=== PATIENT | male | born 1955 | race Caucasian/White ===

== ENCOUNTER 2022-10-22 14:35 | Observation (INO) | payer OTHER, MEDICARE, SELFPAY ==
[2022-10-22 14:41] VITALS: BP 140/79; PULSE 92; RESP 20; TEMP 36.2; O2SAT 98; BMI 23.7
--- NOTE | 2022-10-22 15:24 | ED_ITS ---
HPI - Fall General Time Seen by Provider: 15:24 Date Seen: 10/22/22 Chief Complaint: Fall/Minor Trauma Stated Complaint: Fall Rib Pain Time Seen by Provider: 10/22/22 15:24 Source: patient, RN notes reviewed and old records reviewed Mode of arrival: ambulatory Limitations: no limitations History of Present Illness HPI Narrative: Jignesh is a very pleasant 67-year-old gentleman with a history of diabetes who comes to the emergency room after having fallen and hurting his chest. Patient noted to be in [place] working and was carrying a 15 lb paving stone when he tripped over an electrical cord fell forward landing on the paving stone which was on the ground. He did not lose consciousness, hit his head or hurt his neck. He did however hit his right anterior chest and anterior chest. He has been having significant pain since that time in feels as if there is maybe some movement and crackling in the right anterior chest. He has not had a cough or had any hemoptysis. He has not been short of breath, nauseated or had any vomiting. Related Data Allergies Allergy/AdvReac Type Severity Reaction Status Date / Time No Known Drug Allergies Allergy Verified 10/22/22 14:41 Review of Systems Status of ROS: Reports: 6 or more systems reviewed and unremarkable except as noted in History and below Const: Denies: fever or chills Eyes: Reports: decreased night vision; Denies: change in vision ENMT: Denies: throat pain, neck pain or difficulty swallowing Cardio: Denies: shortness of breath with exertion Resp: Denies: shortness of breath, cough or wheezing GI: Denies: abdominal pain, nausea, vomiting or difficulty swallowing Musculo: Denies: back pain, neck pain, extremity pain or extremity swelling Integ/Breast: Reports: redness and skin pain; Denies: rash or itching Neuro: Denies: headache, numbness in extremities, weakness in extremities or lack of coordination Allergy/Immuno: Denies: wheezing PFSH PFSH Medical History Diabetes mellitus type 1 Diabetic peripheral neuropathy Mixed hyperlipidemia Tobacco abuse disorder Family History Brother Cancer Social History Smoking Status: Current every day smoker What tobacco products do you use: cigars Do you use any of these nicotine containing products: None Second hand tobacco smoke exposure: No How often do you have a drink containing alcohol: 4 or more times a week How many standard drinks containing alcohol do you have on a typical day: 1 or 2 How often do you have six or more drinks on one occasion: Monthly AUDIT-C Alcohol total score: 6 Non-prescribed substance use: denies use service: No Exam Narrative: Exam Narrative: Jignesh is a very pleasant 67-year-old male. He is alert and oriented with a GCS of 15. Nontoxic in appearance. Airway is open breathing is easy circulation without evidence of bleeding disability-pupils equal round and reactive, GCS of 15. Head is atraumatic normocephalic with no pain palpation over the midline cervical spine. EOM is full Ankush symmetrical speech is normal. Heart is with regular rate and rhythm and lungs are clear in all lung garcia Patient has tenderness noted over the anterior lateral ribs 456. There is erythema over the sub areola our area. I do not palpate any crepitus there is no subcutaneous emphysema Abdomen soft nontender with no pain with palpation over liver or spleen. No CVA tenderness with percussion Lower extremities moving without difficulty. No pain with palpation over thoracic or lumbar spine. Const: Vital Signs, click to edit/add: Vital Signs - 24 hr 10/22/22 14:41 10/22/22 18:08 10/22/22 18:11 Temperature 97.1 F L Pulse Rate 63 66 Pulse Rate [Pulse Oximeter] 92 Respiratory Rate 20 Blood Pressure 149/74 H Blood Pressure [Le ft Upper Arm] 140/79 H Pulse Oximetry 98 97 97 Oxygen Delivery Me thod Room Air 10/22/22 18:15 Temperature Pulse Rate 65 Pulse Rate [Pulse Oximeter] Respiratory Rate Blood Pressure Blood Pressure [Le ft Upper Arm] Pulse Oximetry 97 Oxygen Delivery Me thod Course Course Hospital Course: Patient is presenting with anterior chest trauma but stable. I a.m. very suspicious of rib fractures in the upper anterior chest wall. Will have labs drawn to include a CBC and basic panel as well as troponin. Will have an EKG and a CT of the chest with contrast. Patient is declining pain medications at this time. Will need to rule patient out for pneumothorax, hemothorax, great vessel injury, cardiac contusion, lung contusion. Reevaluation(s) Reevaluation #1: Chest CT noted to show anterior rib fractures. I will be speaking to [facility] regarding their protocols in the event of rib fractures with stable vital signs. Consultations Consultation #1: Able to speak with [facility] who does suggest admission. Vital Signs Vital signs: Initial Vital Signs Temperature 97.1 F L 10/22/22 14:41 Temperature Source Temporal Artery Scan 10/22/22 14:41 Pulse Rate 92 10/22/22 14:41 Pulse Rhythm 10/22/22 14:41 Respiratory Rate 20 10/22/22 14:41 Blood Pressure 140/79 H 10/22/22 14:41 Blood Pressure Mean 99 10/22/22 14:41 Blood Pressure Position Sitting 10/22/22 14:41 Pulse Oximetry 98 10/22/22 14:41 Oxygen Delivery Method 10/22/22 14:41 Vital Signs Temperature 97.1 F L 10/22/22 14:41 Pulse Rate 92 10/22/22 14:41 Respiratory Rate 20 10/22/22 14:41 Blood Pressure 140/79 H 10/22/22 14:41 Pulse Oximetry 98 10/22/22 14:41 Oxygen Delivery Method 10/22/22 14:41 Temperature 97.1 F L 10/22/22 14:41 Pulse Rate 65 10/22/22 18:15 Respiratory Rate 20 10/22/22 14:41 Blood Pressure 149/74 H 10/22/22 18:11 Pulse Oximetry 97 10/22/22 18:15 Oxygen Delivery Method 10/22/22 14:41 MDM - Fall MDM Narrative Medical decision making narrative: 1. Rib fractures-CT confirms read fractures of 3, 4, 5 with no evidence of flail chest. No evidence of underlying hemothorax or pneumothorax. O2 sats continued to be in the 90s with no complaints of shortness of breath. 2. Sternal fracture-oblique mildly displaced sternal fracture noted. A patient has EKG which is reassuring without any ST elevation and a troponin is negative. Great vessels of CT do not show any evidence of compromise. 3. Diabetes-patient requesting NovoLog 8 units prior to eating. This is been ordered. 4. . Disposition-I was able to speak to [facility] regarding their care of a gentleman with these injuries but essentially stable not not requiring respiratory support and they do recommend overnight hospitalization for observation. I have informed surgeon on-call as a [facility] for trauma center that we do have this patient but are not requiring any evaluation at this time. Dr. Kellogg, hospitalist, has accepted this patient for admission. Note patient now receptive to admission as well as some pain medications. Patient given morphine 4 mg and Zofran 4 mg. Medical Records Attestation: I reviewed the patient's medical records. Lab Data Attestation: I reviewed the patient's lab results. Lab results narrative: Review of labs shows no evidence of anemia, leukocytosis or thrombocytopenia. Labs: Lab Results 10/22/22 10/22/22 10/22/22 Range/Units 15:45 15:45 17:48 WBC 8.13 (4.50-11.00) K/uL RBC 4.17 L (4.30-5.90) m/uL Hgb 14.7 (13.5-17.5) gm/dL Hct 41.4 (37.0-53.0) % MCV 99 (80-100) fL MCH 35 H (26-34) pg MCHC 36 (32-36) gm/dL RDW Coeff of Tarsha 11.6 (11.5-15.5) % Plt Count 270 (140-440) K/uL Neut % (Auto) 73.2 H (42.0-72.0) % Lymph % (Auto) 13.9 L (20-44) % [place] % (Auto) 11.8 H (0.0-11.0) % Eos % (Auto) 0.5 (0.0-7.0) % Baso % (Auto) 0.5 (0.0-3.0) % Neut # (Auto) 6.00 (1.7-7.0) K/uL Lymph # (Auto) 1.10 (0.90-2.90) K/uL [place] # (Auto) 1.00 H (0.00-0.90) K/UL Eos # (Auto) 0.04 (0.00-0.50) K/uL Baso # (Auto) 0.04 (0.00-0.30) K/uL Sodium 136 (135-149) mmol/L Potassium 4.6 (3.6-5.1) mmol/L Chloride 106 (96-114) mmol/L Carbon Dioxide 23 (20-32) mmol/L BUN 21 (7-30) mg/dL Creatinine 0.7 (0.5-1.5) mg/dL Estimated Creat Clear 73.00 Estimated GFR 100 ml/min Glucose 219 H (60-115) mg/dL Calcium 9.1 (8.4-10.6) mg/dL Troponin I < 0.01 L (0.01-0.04) ng/mL SARS-CoV-2 (PCR) Negative SARS-CoV-2 (Negative) Imaging Data CT scan - chest: Attestation: I have reviewed the pertinent imaging results. My impression: I suspect a sternal fracture and do note at least 1 rib fracture. Radiologist's impression: HEART and MEDIASTINUM: The heart size is normal. There is no mediastinal or hilar adenopathy or mass. There is no pericardial effusion. LUNGS: The lungs show no focal consolidation or mass. The airways appear normal. Trace bibasilar atelectasis PLEURAL SPACES: There is no pleural effusion, pneumothorax or pleural based mass. VISUALIZED UPPER ABDOMEN: Hepatic steatosis. Granulomatous calcifications of the liver and spleen limited visualized upper abdominal structures appear normal. OSSEOUS STRUCTURES: Fractures of the anterolateral aspect of the right 3rd, 4th and 5th ribs. Nondisplaced oblique mid sternal fracture. No mediastinal hematoma. No lung injury. No pleural effusion or pneumothorax. No spinal fracture TUBES and LINES: None. IMPRESSION: 1. Fractures of the inferolateral aspect of the right 3rd, 4th and 5th ribs. Nondisplaced oblique mid sternal fracture. No mediastinal hematoma. No mediastinal vascular injury. No lung injury. No pleural injury. 2. No fracture of the spine. 3. Incidental nonacute appearing findings as discussed above Please note that all CT scans at this facility use dose modulation, iterative reconstruction, and/or weight-based dosing when appropriate to reduce radiation dose to as low as reasonably achievable. ECG Data Attestation: I personally reviewed and interpreted this ECG as follows: ECG interpretation date: 10/22/22 Interpretation: EKG by my read shows sinus rhythm at a rate of 63. No evidence of acute ST or T-wave changes. Discharge Plan Discharge Clinical Impression: Multiple rib fractures, Sternal fracture Patient Disposition: Admitted As Inpatient Condition: Improved
[2022-10-22 16:08] LABS: Basophils Absolute Auto 0.04 K/uL (0.00-0.30); Basophils Percent Auto 0.5 % (0.0-3.0); Eosinophils Absolute Auto 0.04 K/uL (0.00-0.50); Eosinophils Percent Auto 0.5 % (0.0-7.0); Hematocrit 41.4 % (37.0-53.0); Hemoglobin* 14.7 gm/dL (13.5-17.5); Immature Granulocytes Abs Auto 0.01 K/uL (0.00-0.30); Immature Granulocytes Pct Auto 0.1 %; Lymphocytes Percent Auto 13.9 % (20-44); Mean Corpuscular HGB Conc 36 gm/dL (32-36); Mean Corpuscular Hemoglobin 35 pg (26-34); Mean Corpuscular Volume 99 fL (80-100); Monocytes Percent Auto 11.8 % (0.0-11.0); Neutrophils Percent Auto 73.2 % (42.0-72.0); Platelet Count* 270 K/uL (140-440); RDW Coefficient of Variation % 11.6 % (11.5-15.5); Red Blood Count 4.17 m/uL (4.30-5.90); White Blood Count* 8.13 K/uL (4.50-11.00)
[2022-10-22 16:10] LABS: Slide Review Reflex No
--- NOTE | 2022-10-22 16:14 | CRLHL7_ITS ---
For Patients: As a result of the Century Cures Act, medical imaging exams and procedure reports are released immediately into your electronic medical record. You may view this report before your referring provider. If you have questions, please contact your health care provider. INDICATION: Trauma COMPARISON: None TECHNIQUE: : CT examination of the chest was performed with the uneventful intravenous administration of 75 cc of Isovue 370 while thin axial sections were obtained from above the apices of the lungs to the lung bases. Please note that all CT scans at this facility use dose modulation, iterative reconstruction, and/or weight-based dosing when appropriate to reduce radiation dose to as low as reasonably achievable. FINDINGS: : HEART and MEDIASTINUM: The heart size is normal. There is no mediastinal or hilar adenopathy or mass. There is no pericardial effusion. LUNGS: The lungs show no focal consolidation or mass. The airways appear normal. Trace bibasilar atelectasis PLEURAL SPACES: There is no pleural effusion, pneumothorax or pleural based mass. VISUALIZED UPPER ABDOMEN: Hepatic steatosis. Granulomatous calcifications of the liver and spleen limited visualized upper abdominal structures appear normal. OSSEOUS STRUCTURES: Fractures of the anterolateral aspect of the right 3rd, 4th and 5th ribs. Nondisplaced oblique mid sternal fracture. No mediastinal hematoma. No lung injury. No pleural effusion or pneumothorax. No spinal fracture TUBES and LINES: None. IMPRESSION: 1. Fractures of the inferolateral aspect of the right 3rd, 4th and 5th ribs. Nondisplaced oblique mid sternal fracture. No mediastinal hematoma. No mediastinal vascular injury. No lung injury. No pleural injury. 2. No fracture of the spine. 3. Incidental nonacute appearing findings as discussed above Please note that all CT scans at this facility use dose modulation, iterative reconstruction, and/or weight-based dosing when appropriate to reduce radiation dose to as low as reasonably achievable. Dictated by Jignesh Gilbert MD @ 10/22/2022 5:10:04 PM (Electronically Signed)
[2022-10-22 16:15] LABS: Chloride* 106 mmol/L (96-114); Sodium* 136 mmol/L (135-149)
[2022-10-22 16:16] LABS: Potassium* 4.6 mmol/L (3.6-5.1)
[2022-10-22 16:18] LABS: Creatinine* 0.7 mg/dL (0.5-1.5); Estimated Glomerular Filt Rate 100 ml/min
[2022-10-22 16:19] LABS: Blood Urea Nitrogen* 21 mg/dL (7-30); Calcium* 9.1 mg/dL (8.4-10.6); Carbon Dioxide* 23 mmol/L (20-32); Glucose* 219 mg/dL (60-115)
[2022-10-22 18:08] VITALS: PULSE 63; O2SAT 97
[2022-10-22 18:11] VITALS: BP 149/74; PULSE 66; O2SAT 97
[2022-10-22 18:15] VITALS: PULSE 65; O2SAT 97
[2022-10-22] MEDS: ONDANSETRON 2 MG/ML inj 4 MG IVP (18:22)
[2022-10-22] MEDS: MORPHINE 4 MG/ML INJ IVP (18:22)
--- NOTE | 2022-10-22 18:39 | PM.IMHP1 ---
Hospitalist- H&P: HPI History of Present Illness Time Seen by Provider: 18:40 Date Seen: 10/22/22 Chief complaint: Fall Rib Pain Narrative: Jignesh Hatfield is a 67 year old man who was in his usual state of health until he sustained a fall from the standing state at 10:00 a.m. this morning. At that time he was carrying a paving stone that is 3 ft long and tripped over a wire, the stone fell out of his hand in front of him and then he fell landing 1st on the stone and then to the ground. He has had right-sided chest pain since then. He was doing some work in [facility] at the time of this accident. He finished his job there and then came to the hospital at [facility] for further assessment and management support. If he is still he has minimal discomfort. If he moves he has a lot of discomfort. Localizes it in the right upper side of his chest and in his sternal area. Denies dyspnea at rest or with exertion. Denies orthostasis, dizziness, syncope. Denies nausea or vomiting. Informs me that he is tolerant to pain. On assessment in our emergency department he has minimal amount of crepitus in the right side of the chest. CT scan of the chest is obtained and demonstrates single rib fractures on the right 3rd 4th and 5th ribs with a sternal fracture. Does not have a flail chest. Our emergency department physician's contacted the trauma surgeons at [facility] who recommended overnight observation as well as pain management. Patient is agreeable to the same. Review of Systems Status of ROS: Reports: 10 or more systems reviewed and unremarkable except as noted in History and below Narrative: Generally healthy. Does have diabetes mellitus type 2 which he manages with short acting and long acting insulin. On average she takes about 25 units of his glargine insulin to once daily and about 8 units of his aspart insulin once daily. Only eats 1 meal per day, his evening meal. Takes his insulin in association with his meals. Does carb count. States blood sugars typically well managed with this effort. Denies hypoglycemic episodes. Independent in all ADLs. No gastrointestinal or genitourinary concerns. No focal motor neurologic deficits. Denies weight loss or weight gain. Denies night sweats. No recent fevers, rigors, diaphoresis. No recent febrile illnesses. No other recent trauma or injury. No recent travel aside from local or regional travel related to his work. Lives with his . Designates his , [address], as his power of trial attorney for health should that be required. Requests full resuscitation in the event of cardiopulmonary demise. Smokes about 3 cigars daily. He tells me he drinks 3 oz of vodka on the rocks once daily. Denies any other chemical use or abuse. [facility] Medical History Diabetes mellitus type 1 Diabetic peripheral neuropathy Mixed hyperlipidemia Tobacco abuse disorder Family History Brother Cancer Social History Smoking Status: Current every day smoker What tobacco products do you use: cigars Do you use any of these nicotine containing products: None Second hand tobacco smoke exposure: No How often do you have a drink containing alcohol: 4 or more times a week How many standard drinks containing alcohol do you have on a typical day: 1 or 2 How often do you have six or more drinks on one occasion: Monthly AUDIT-C Alcohol total score: 6 Non-prescribed substance use: denies use service: No Meds Home Medications and Allergies Home Medication Comments: Long-acting insulin, roughly 25 units daily subcutaneously Aspart insulin, about 8 units once daily with evening meal Atorvastatin 20 mg once daily He no longer uses aspirin as he had been previously prescribed 81 mg daily. Allergies Allergy/AdvReac Type Severity Reaction Status Date / Time No Known Drug Allergies Allergy Verified 10/22/22 14:41 Exam Narrative: Exam Narrative: When laying still he appears for the most part comfortable. The slightest movement sometimes even talking or moving his head from side to side causes him to wince in pain. Alert, oriented to self, place, time, situation. Friendly, cooperative, articulate. Mood and affect are congruent. Vision and hearing are grossly normal. Neck is supple. Midline trachea. No JVD or hepatojugular reflux. Lungs are clear to auscultation without wheezing, rhonchi, or rales. Contusion over the right chest superior lateral. No CVA tenderness. Heart tones with regular rhythm, normal S1-S2, without murmur, gallop, or rub. PMI not laterally displaced. Abdomen with active bowel sounds, soft, nontender. Extremities without edema. Moves all 4 extremities. Independent transfer, station, gait. Winces in pain with any movement though. Const: Vital Signs, click to edit/add: Vital Signs - 24 hr 10/22/22 14:41 10/22/22 18:08 10/22/22 18:11 Temperature 97.1 F L Pulse Rate 63 66 Pulse Rate [Pulse Oximeter] 92 Respiratory Rate 20 Blood Pressure 149/74 H Blood Pressure [Le ft Upper Arm] 140/79 H Pulse Oximetry 98 97 97 Oxygen Delivery Me thod Room Air 10/22/22 18:15 Temperature Pulse Rate 65 Pulse Rate [Pulse Oximeter] Respiratory Rate Blood Pressure Blood Pressure [Le ft Upper Arm] Pulse Oximetry 97 Oxygen Delivery Az thod Hospitalist - H&P: Result Labs Labs: Short CBC 10/22/22 Range/Units 15:45 WBC 8.13 (4.50-11.00) K/uL Hgb 14.7 (13.5-17.5) gm/dL Hct 41.4 (37.0-53.0) % Plt Count 270 (140-440) K/uL BMP 10/22/22 15:45 Sodium 136 Potassium 4.6 Chloride 106 Carbon Dioxide 23 BUN 21 Creatinine 0.7 Glucose 219 H Calcium 9.[address] scan - chest: Attestation: I have reviewed the pertinent imaging results. Radiologist's impression: 1. Fractures of the inferolateral aspect of the right 3rd, 4th and 5th ribs. Nondisplaced oblique mid sternal fracture. No mediastinal hematoma. No mediastinal vascular injury. No lung injury. No pleural injury. 2. No fracture of the spine. 3. Incidental nonacute appearing findings as discussed above Assessment and Plan Assessment and plan (1) Fall against object: Status: Acute (2) Multiple rib fractures: Problem comment: Right 3rd, 4th, 5th ribs - not flail Status: Acute (3) Closed fracture sternum: Status: Acute (4) Diabetes mellitus type 1: Status: Acute (5) Tobacco abuse disorder: Problem comment: Smokes roughly 3 cigars daily. Status: Acute Plan 1. Reviewed with patient. 2. Reviewed with Dr. Jain, [facility] emergency department doctor, who spoke with trauma surgeon at [facility]. Trauma surgeon recommended overnight observation and initiation of pain management efforts. 3. Patient agreeable with above stated plans and recommendations. 4. Continue with diabetes management efforts. 5. Schedule acetaminophen and naproxen for pain management. Because of the scheduled naproxen, will also initiate prophylactic proton pump inhibitor, omeprazole. Will also order as needed opioid. Because of the possibility of nausea, will order as needed antiemetic, ondansetron. 6. Physical therapy and occupational therapy consultation.
[2022-10-22 18:42] LABS: Troponin I* < 0.01 ng/mL (0.01-0.04)
[2022-10-22 18:43] LABS: SARS PCR* Negative SARS-CoV-2 (Negative)
[2022-10-22 19:48] VITALS: BP 106/68; PULSE 79; RESP 18; TEMP 36.7; O2SAT 97; BMI 22.6
[2022-10-22] MEDS: ACETAMINOPHEN 325 MG TABLET 650 MG PO (22:09)
[2022-10-22] MEDS: KETOROLAC 30 MG/ML inj IVP (22:09)
[2022-10-22 23:00] VITALS: BP 100/70; PULSE 59; RESP 20; O2SAT 93
--- NOTE | 2022-10-23 05:24 | PC.NURSE ---
Pt arrived from ED approx 1940, ambulated from ED to rm 257, denied SOB, lightheaded or dizziness, does acknowledge pain 10/10 with movement, activity, ambulating. Pain reduced to 5/10 with inactivity. Lung sounds clear throughout, IS to 2500cc, when asked how much pain using the IS caused patient stated unmeasurable. Slept very well during night, approx 0400 pt O2 desaturated to 83% briefly before coming back up to mid 90's, went into room to assess patient, pt was sleeping on back, mild snoring noted with brief moments of apnea lasting approx 5 sec. Nurse woke patient up and encouraged patient to lay on side, pt O2 mid to upper 90's on RA remainder of night. did not request any pain medications during night after scheduled Tylenol and Toradol administration. Ice to right upper chest, contusion noted to site, slight swelling, no bruising at this time. Educated patient on signs and symptoms of pneumothorax and importance of reporting any changes in respiratory status, effort or pain, patient acknowledged understanding.
[2022-10-23 06:26] LABS: Hemoglobin A1C* 7.26 % (0-5.6)
[2022-10-23 07:00] VITALS: BP 117/64; PULSE 64; RESP 18; RESP 20; TEMP 36.5; O2SAT 100; O2SAT 98
[2022-10-23] MEDS: NAPROXEN 250 MG TABLET 500 MG PO (09:37)
[2022-10-23] MEDS: ACETAMINOPHEN 325 MG TABLET 650 MG PO (09:37)
--- NOTE | 2022-10-23 09:54 | CRLHL7_ITS ---
For Patients: As a result of the Cures Act, medical imaging exams and procedure reports are released immediately into your electronic medical record. You may view this report before your referring provider. If you have questions, please contact your health care provider. INDICATION: Follow up rib fractures. TECHNIQUE: AP portable chest. COMPARISON: Correlation is made with a contrast-enhanced chest CT October 22, 2022. FINDINGS: The subtle nondisplaced rib fractures involving the right 3rd, 4th, and 5th ribs identified on CT are not appreciated on this plain radiograph. The subtle nondisplaced fracture of the mid sternal body is also not appreciated on this study. The lungs are clear. Overall heart size is normal. No pneumothorax. Mild degenerative change of the AC joints. IMPRESSION: Subtle nondisplaced rib fractures of the right 3rd through 5th ribs seen on the recent CT October 22, 2022 are not appreciated on today`s chest x-ray and neither is the sternal body fracture. Dictated by Daron Allan MD @ 10/23/2022 10:35:37 AM (Electronically Signed)
--- NOTE | 2022-10-23 11:26 | PC.NURSE ---
AVS reviewed. patient vitally stable. PIV removed. All concerns addressed. Patient discharged to home with no concerns and follow up instructions provided.
--- NOTE | 2022-10-23 12:45 | P.DS_ITS ---
DS: Providers Provider Date Seen: 10/23/22 Date of admission: 10/22/22 19:40 Primary care physician: Abel Velasquez MD Admitting Clinician: mUer Yu MD Consults: PT, OT, RT Attending Physician on discharge: Catherine Cid MD Date of Discharge: 10/23/22 DS: Diagnosis Discharge Diagnosis (1) Multiple rib fractures: Status: Acute Problem details: - Right 3rd, 4th, 5th ribs - not flail (2) Closed fracture sternum: Status: Acute (3) Diabetes mellitus type 1: Status: Acute DS: Summary Hospital Course Hospital Course: Jignesh is a 67-year-old male fell at work yesterday, sustaining 3 right-sided rib fractures and a sternal fracture, noted on CT scan in the emergency room. He was admitted to the hospital and observed overnight, per the recommendations of trauma. Pain was primarily managed with Tylenol and naproxen, vital signs remained stable, and patient was requesting discharge home (lives locally with ) on hospital day 1. Repeat chest x-ray revealed no further concerns; specifically no pneumothorax. We discussed activity restrictions and follow-up precautions; patient was agreeable to plan and discharged home 10/23/22. Status at Discharge Functional status at discharge: independent ambulation Time Spent with Patient Time attestation: Total time spent providing and/or coordinating discharge services: Time spent: Less than 30 minutes Exam Narrative: Exam Narrative: GEN: Alert and oriented, sitting comfortably in bed and speaking in full sen tences HEENT: Full range of motion of neck, no crepitus CV: RRR, No concerning murmurs, rubs, or gallops R: No concerning wheezing, air movement adequate, mild discomfort with deep inhalation Ext: wwp, no concerning edema Skin: No concerning skin lesions or rashes on exposed skin Neuro: Nonfocal Psych: Appropriate Const: Vital Signs, click to edit/add: Vital Signs - 24 hr 10/22/22 14:41 10/22/22 18:08 10/22/22 18:11 Temperature 97.1 F L Pulse Rate 63 66 Pulse Rate [Pulse Oximeter] 92 Respiratory Rate 20 Blood Pressure 149/74 H Blood Pressure [Le ft Arm] Blood Pressure [Le ft Upper Arm] 140/79 H Pulse Oximetry 98 97 97 Oxygen Delivery Me thod Room Air 10/22/22 18:15 10/22/22 19:48 10/22/22 19:48 Temperature 98.1 F Pulse Rate 65 Pulse Rate [Pulse Oximeter] 79 Respiratory Rate 18 18 Blood Pressure Blood Pressure [Le ft Arm] 106/68 Blood Pressure [Le ft Upper Arm] Pulse Oximetry 97 97 97 Oxygen Delivery Me thod Room Air Room Air 10/22/22 23:00 10/22/22 23:00 10/22/22 23:00 Temperature Pulse Rate Pulse Rate [Pulse Oximeter] Respiratory Rate 20 20 Blood Pressure Blood Pressure [Le ft Arm] Blood Pressure [Le ft Upper Arm] Pulse Oximetry 93 93 Oxygen Delivery Me thod Room Air 10/22/22 23:00 10/23/22 07:00 10/23/22 07:00 Temperature Pulse Rate Pulse Rate [Pulse Oximeter] 59 L Respiratory Rate 20 Blood Pressure Blood Pressure [Le ft Arm] 100/70 Blood Pressure [Le ft Upper Arm] Pulse Oximetry 93 98 98 Oxygen Delivery Nc thod Room Air Room Air 10/23/22 07:00 10/23/22 07:00 Temperature 97.7 F Pulse Rate Pulse Rate [Pulse Oximeter] 64 64 Respiratory Rate 20 18 Blood Pressure Blood Pressure [Le ft Arm] 117/64 Blood Pressure [Le ft Upper Arm] Pulse Oximetry 100 Oxygen Delivery Me thod Room Air DS: Data Data Completed and Pending Labs on day of discharge: Labs from last 24 hours 10/23/22 10/22/22 10/22/22 05:45 17:48 15:45 WBC RBC Hgb Hct MCV MCH MCHC RDW Coeff of Tarsha Plt Count Neut % (Auto) Lymph % (Auto) [place] % (Auto) Eos % (Auto) Baso % (Auto) Neut # (Auto) Lymph # (Auto) [place] # (Auto) Eos # (Auto) Baso # (Auto) Sodium 136 Potassium 4.6 Chloride 106 Carbon Dioxide 23 BUN 21 Creatinine 0.7 Estimated Creat Clear 73.00 Estimated GFR 100 Glucose 219 H Hemoglobin A1c 7.26 H Calcium 9.1 Troponin I < 0.01 L SARS-CoV-2 (PCR) Negative SARS-CoV-2 10/22/22 15:45 WBC 8.13 RBC 4.17 L Hgb 14.7 Hct 41.4 MCV 99 MCH 35 H MCHC 36 RDW Coeff of Tarsha 11.6 Plt Count 270 Neut % (Auto) 73.2 H Lymph % (Auto) 13.9 L [place] % (Auto) 11.8 H Eos % (Auto) 0.5 Baso % (Auto) 0.5 Neut # (Auto) 6.00 Lymph # (Auto) 1.10 [place] # (Auto) 1.00 H Eos # (Auto) 0.04 Baso # (Auto) 0.04 Sodium Potassium Chloride Carbon Dioxide BUN Creatinine Estimated Creat Clear Estimated GFR Glucose Hemoglobin A1c Calcium Troponin I SARS-CoV-2 (PCR) Discharge Plan Discharge Disposition: Home, Self-Care Date of Admission: 10/22/22 19:40 Attending Provider on Discharge: Catherine Cid Primary Care Provider: Abel Velasquez Condition: Improved Anticipated Discharge Date/Time: 10/23/22 11:00 Discharge Medications: New naproxen 250 mg Tablet 500 mg PO BIDWM Qty: 30 0RF oxycodone 5 mg Tablet 5 mg PO Q6H PRN (Reason: Pain) Qty: 10 0RF Continued atorvastatin 20 mg tablet 20 mg PO DAILY insulin aspart U-100 [Novolog FlexPen U-100 Insulin] 100 unit/mL (3 mL) insulin pen 8 unit SUBCUT DAILY@1800 insulin degludec [Tresiba FlexTouch U-100] 100 unit/mL (3 mL) insulin pen 25 unit SUBCUT DAILY Discharge Orders: Discharge Order (Routine); Ordered 10/23/22 Ordered By: Catherine Cid Patient Education: Naproxen (By mouth), Oxycodone, Rapid Release (By mouth), Rib Fracture (DC) Additional Instructions: For pain: Tylenol 1000 mg every 8 hours, naproxen 500 mg twice per day with food, oxycodone in between for severe pain if needed. Continue your incentive spirometer throughout the day to prevent pneumonia. 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 Activity Level: No strenuous activity Activity Detail: no work until clinic followup next week - anticipate at least 10 days off of heavy lifting Discharge Diet: Diabetic Diet Detail: per previous Follow Up Appointments: Abel Velasquez MD [Primary Care Provider] - 10/27/22 11:35 am (Dr. Velasquez is not in the office. Appointment is scheduled with Josefina Romo in [address]) Forms: [employer] Info Instructions
--- NOTE | 2022-10-23 18:25 | REH.OT ---
OT: Order received, OT went to eval patient at 1230 and patient had discharged prior to session.
== END 2022-10-23 11:20 | disposition home or self-care (01) ==
LOC: ED 18:48 → MEDSURG 19:40
PROVIDERS: Admitting Provider Internal Medicine; Emergency Provider Family Medicine; PCP Surgery; Visit Provider Internal Medicine
DX: S22.41XA Multiple fractures of ribs, right side, initial encounter for closed fracture (principal); S22.20XA Unspecified fracture of sternum, initial encounter for closed fracture; W18.00XA Striking against unspecified object with subsequent fall, initial encounter; S29.9XXA Unspecified injury of thorax, initial encounter; R07.89 Other chest pain; E10.42 Type 1 diabetes mellitus with diabetic polyneuropathy; Z79.4 Long term (current) use of insulin; E78.2 Mixed hyperlipidemia; Z72.0 Tobacco use
CPT/HCPCS: 36415; 71045; 71260; 80048; 82962; 83036; 84484; 85025; 87635; 93005; 94761; 96372; 96374; 96375; 97161; 99285; A9270; G0378; J1885; J2270; J2405; Q9967